=== PATIENT | male | born 1965 | race Two or more races ===

== ENCOUNTER 2022-08-06 11:57 | Outpatient (REF) | payer OTHER, SELFPAY ==
[2022-08-06 13:51] LABS: MANUAL DIFF FLAG NO
[2022-08-06 14:00] LABS: Basophils Percent Auto 0.4 % (0-2); Eosinophils Absolute Auto 0.1 X10*3/uL (0.0-0.4); Eosinophils Percent Auto 2.4 % (0-4); Hematocrit 45.8 % (42.0-52.0); Hemoglobin 15.6 g/dl (14.0-18.0); Imm Gran Abs Auto 0.01 X10*3/uL (0.00-0.03); Imm Gran Pct Auto 0.2 % (0.0-0.4); Lymphocytes Absolute Auto 1.6 X10*3/uL (1.2-4.9); Lymphocytes Percent Auto 31.2 % (20-40); Mean Corpuscular HGB Conc 34.1 g/dl (31.0-36.0); Mean Corpuscular Hemoglobin 30.7 pg (27.0-33.0); Mean Corpuscular Volume 90.2 fL (80.0-98.0); Mean Platelet Volume 10.7 fL (9.4-12.4); Monocytes Absolute Auto 0.7 X10*3/uL (0.1-1.2); Monocytes Percent Auto 12.8 % (2-11); Neutrophils Absolute Auto 2.7 x10*3/uL (2.0-8.3); Platelet Count 180 X10*3/uL (160-400); Red Blood Count 5.08 X10*6/uL (4.60-5.80); Red Cell Distribution Width 12.7 % (11.0-16.0); White Blood Count 5.1 X10*3/uL (4.8-10.8)
[2022-08-06 14:21] LABS: C Reactive Protein 0.25 mg/dL (< or = 0.50); Estimated Glomerular Filt Rate > 60
[2022-08-06 14:49] LABS: Erythrocyte Sedimentation Rate 2 MM/HR (0-15)
== END 2022-08-06 11:58 | disposition home or self-care (01) ==
LOC: HO.10HDL 11:57
PROVIDERS: Visit Provider Internal Medicine Rheumatology
DX: M54.50 Low back pain, unspecified (principal); M25.551 Pain in right hip; M17.0 Bilateral primary osteoarthritis of knee; Z79.1 Long term (current) use of non-steroidal anti-inflammatories (NSAID)
CPT/HCPCS: 36415; 82565; 85025; 85652; 86140; 99202

== ENCOUNTER 2022-08-06 12:15 | Outpatient (REF) | payer OTHER, SELFPAY ==
--- NOTE | ~2022-08-06 | XR_ITS ---
EXAMINATION: XR lumbar spine 2-3V CLINICAL INFORMATION: Reason for Exam M54.50 - Low back pain, unspecified COMPARISON: None TECHNIQUE: 3 views of the lumbar spine FINDINGS: 5 nonrib-bearing lumbar-type vertebral bodies. Posterior fusion hardware from L5 to S1 without evidence of hardware complication. Age-indeterminate compression deformity of the L2 vertebral body, with bridging anterior osteophytes suggest a chronic finding. There is minimal retrolisthesis of L2 on L3. Moderate multilevel degenerative disc disease with loss of disc space height, facet arthropathy and disc osteophyte complexes. This is worst at L1/L2. Paravertebral soft tissues are unremarkable. XR/XR lumbar spine 2-3V IMPRESSION: 1. Moderate spondylosis of the lumbar spine, as above detailed. 2. Posterior fusion hardware from L5 to S1 without evidence of hardware complication. 3. Age-indeterminate compression deformity of the L2 vertebral body, with bridging anterior osteophytes suggest a chronic finding.
--- NOTE | ~2022-08-06 | XR_ITS ---
EXAMINATION: XR knee RT 3V, XR hip RT min 2V CLINICAL INFORMATION: Reason for Exam M17.0 - Bilateral primary osteoarthritis of knee COMPARISON: None. TECHNIQUE: Four views of the right knee and 2 views of the right hip XR/XR knee RT 3V FINDINGS/IMPRESSION: * No acute fracture or dislocation. * Severe osteoarthritis of the right knee joint with tricompartmental osteophytosis and joint space narrowing with near [id number] apposition of the medial compartment and possible intra-articular loose bodies. * Right hip joint space is preserved. * No soft tissue abnormality.
--- NOTE | ~2022-08-06 | XR_ITS ---
EXAMINATION: XR knee RT 3V, XR hip RT min 2V CLINICAL INFORMATION: Reason for Exam M17.0 - Bilateral primary osteoarthritis of knee COMPARISON: None. TECHNIQUE: Four views of the right knee and 2 views of the right hip XR/XR hip RT min 2V FINDINGS/IMPRESSION: * No acute fracture or dislocation. * Severe osteoarthritis of the right knee joint with tricompartmental osteophytosis and joint space narrowing with near [id number] apposition of the medial compartment and possible intra-articular loose bodies. * Right hip joint space is preserved. * No soft tissue abnormality.
== END 2022-08-06 12:16 | disposition home or self-care (01) ==
LOC: HO.XRAY 12:15
PROVIDERS: PCP Nurse Practitioner Family; Visit Provider Internal Medicine Rheumatology
DX: M17.0 Bilateral primary osteoarthritis of knee (principal); M25.551 Pain in right hip; M54.50 Low back pain, unspecified
CPT/HCPCS: 72100; 73502; 73562